=== PATIENT | male | born 1960 | race Caucasian/White ===

== ENCOUNTER 2017-08-20 10:44 | Inpatient (IN) | payer MEDICAID ==
[~2017-08-20] VITALS: Ht 165.1 cm; Wt 67.6 kg
[2017-08-20 10:46] VITALS: BP 144/91
[2017-08-20] MEDS ORDERED: NACL 0.9% 1,000 ML IV ONE ×2 (11:00→11:55)
[2017-08-20] MEDS ORDERED: MECLIZINE 25 MG TAB PO ONE (11:00)
[2017-08-20 11:27] LABS: HEMATOCRIT 51.6 % (36-52); HEMOGLOBIN 16.7 g/dL (12.0-18.0); MEAN CORPUSCULAR HEMOGLOBIN 27 pg (27-31); MEAN CORPUSCULAR HGB CONC 32 g/dL (33-37); MEAN CORPUSCULAR VOLUME 84.4 fL (80-94); PLATELET COUNT (AUTO) 153 K/uL (140-450); RED BLOOD CELL COUNT(AUTO) 6.11 MIL/uL (4.20-6.10); RED CELL DISTRIBUTION WIDTH 12.1 % (11.6-13.7); WHITE BLOOD COUNT (AUTO) 5.7 K/uL (4.8-10.8)
[2017-08-20 11:40] LABS: PROTHROMBIN TIME 10.8 secs (10.8-13.4)
[2017-08-20 12:03] LABS: LYMPHOCYTES % (MANUAL) 22 % (20-46); MONOCYTES % (MANUAL) 3 % (5-12)
[2017-08-20 12:06] LABS: APPEARANCE,URINE CLEAR (CLEAR); BILIRUBIN,URINE NEGATIVE (NEGATIVE); BLOOD, URINE TRACE-I (NEGATIVE); COLOR,URINE YELLOW (YELLOW); LEUKOCYTE ESTERASE ,URINE NEGATIVE (NEGATIVE); NITRITE, URINE NEGATIVE (NEGATIVE); PH,URINE 5.5 (5.0-9.0); UGLUCOSE NEGATIVE (NEGATIVE)
[2017-08-20 12:07] LABS: ANION GAP 17.9 (8-16); CARBON DIOXIDE 21.3 mmol/L (21-32); CREATININE 1.5 mg/dL (0.7-1.3); POTASSIUM 3.2 mmol/L (3.5-5.1)
[2017-08-20 12:15] LABS: ALBUMIN 3.9 g/dL (3.4-5.0)
[2017-08-20 12:16] LABS: RBC,URINE 0-5 (RARE) /HPF (0-5); WBC,URINE 0-5 (RARE) /HPF (0-5)
[2017-08-20 12:18] LABS: LIPASE 217 U/L (73-393)
[2017-08-20] MEDS ORDERED: POTASSIUM CHLORIDE 10 MEQ TABER PO ONE (12:20)
[2017-08-20] MEDS: NACL 0.9% 1,000 ML IV SCH ×2 (12:31→22:39)
[2017-08-20] MEDS ORDERED: ZOLPIDEM 5 MG TAB PO PRN (12:35)
[2017-08-20] MEDS ORDERED: LORazepam 0.5 MG TAB PO PRN (12:35)
[2017-08-20] MEDS ORDERED: ONDANSETRON 4 MG/2 ML VIAL IM/IVP PRN (12:35)
[2017-08-20] MEDS ORDERED: DOCUSATE SODIUM 100 MG GELCAP PO PRN (12:35)
[2017-08-20] MEDS ORDERED: HYDROcodone/APAP 7.5/325 MG 1 TAB PO PRN (12:35)
[2017-08-20] MEDS ORDERED: MORPHINE SULFATE 2 MG/ML SYR IVP PRN (12:35)
[2017-08-20] MEDS ORDERED: ACETAMINOPHEN 325 MG TAB PO PRN (12:35)
[2017-08-20] MEDS ORDERED: MECLIZINE 25 MG TAB PO PRN (12:40)
[2017-08-20] MEDS ORDERED: cefTRIAXone 1,000 MG VIAL ONE (12:52)
[2017-08-20] MEDS ORDERED: LABETALOL 100 MG/20 ML VIAL IVP SCH (13:02)
[2017-08-20] MEDS ORDERED: ASPI81CT89 PO (13:08)
[2017-08-20] MEDS ORDERED: AMOX500C25 PO (13:08)
[2017-08-20] MEDS ORDERED: AMLO5TAB PO (13:08)
[2017-08-20] MEDS ORDERED: amLODIPine 5 MG TAB PO SCH (13:16)
[2017-08-20 13:45] LABS: CHOL/HDL RATIO 3.7 (1-4.5); FREE T4 (FREE THYROXINE) 1.02 ng/dL (0.76-1.46); MAGNESIUM 2.4 mg/dL (1.8-2.4); PHOSPHORUS 1.2 mg/dL (2.5-4.9); THYROID STIMULATING HORMONE 1.8 uIU/mL (0.34-3.74)
[2017-08-20 14:08] LABS: BARBITURATE, URINE NEG. ng/ml (NEG <=200); BENZODIAZEPINE, URINE NEG. ng/mL (NEG <=200); CANNABINOID, URINE NEG. ng/mL (NEG <=50); COCAINE, URINE NEG. ng/mL (NEG <=300); OPIATE, URINE NEG. ng/mL (NEG <=2000); PHENCYCLIDINE SCREEN,URINE NEG. ng/mL (NEG <=25)
[2017-08-20 14:20] VITALS: BP 138/82
[2017-08-20 16:00] VITALS: BP 125/81
[2017-08-20] MEDS: SODIUM PHOS / POTASSIUM PHOS 1 PKT PDR PO SCH (17:05)
[2017-08-20 20:00] VITALS: BP 135/84
[2017-08-21] VITALS: BP 129/80
[2017-08-21 04:00] VITALS: BP 128/84
[2017-08-21 07:41] LABS: BASOPHILS # (AUTO) 0.2 K/uL (0.00-0.22); BASOPHILS % (AUTO) 3.6 % (0.0-2.0); EOSINOPHILS # (AUTO) 0.2 K/uL (0-0.4); EOSINOPHILS % (AUTO) 3.8 % (0.0-4.0); HEMOGLOBIN 15.5 g/dL (12.0-18.0); LYMPHOCYTES # (AUTO) 1.4 K/uL (2.0-11.5); LYMPHOCYTES % (AUTO) 25.8 % (20.5-51.1); MEAN CORPUSCULAR HEMOGLOBIN 28 pg (27-31); MEAN CORPUSCULAR HGB CONC 33 g/dL (33-37); MEAN CORPUSCULAR VOLUME 85.3 fL (80-94); MONOCYTES # (AUTO) 0.5 K/uL (0.8-1.0); MONOCYTES % (AUTO) 9.6 % (1.7-9.3); NEUTROPHILS % (AUTO) 57.2 % (42.2-75.2); PLATELET COUNT (AUTO) 145 K/uL (140-450); RED BLOOD CELL COUNT(AUTO) 5.51 MIL/uL (4.20-6.10); RED CELL DISTRIBUTION WIDTH 12.6 % (11.6-13.7); WHITE BLOOD COUNT (AUTO) 5.3 K/uL (4.8-10.8)
[2017-08-21 07:50] LABS: ANION GAP 14.5 (8-16); CARBON DIOXIDE 23.5 mmol/L (21-32); CREATININE 1.2 mg/dL (0.7-1.3)
[2017-08-21 08:00] VITALS: BP 126/77
[2017-08-21] MEDS: NACL 0.9% 1,000 ML IV SCH (08:31)
[2017-08-21] MEDS ORDERED: METOPROLOL SUCCINATE 50 MG TABER PO SCH (09:00)
[2017-08-21] MEDS ORDERED: LACTOBACILLUS RHAMNOSUS GG 1 EACH CAP PO SCH (09:00)
[2017-08-21] MEDS ORDERED: ATORVASTATIN 20 MG TAB PO SCH ×2 (09:00)
[2017-08-21] MEDS ORDERED: ASPIRIN 81 MG TAB.CHEW PO SCH (09:00)
[2017-08-21] MEDS ORDERED: amLODIPine 5 MG TAB PO SCH ×2 (09:00)
[2017-08-21] MEDS: SODIUM PHOS / POTASSIUM PHOS 1 PKT PDR PO SCH (09:08)
[2017-08-21 10:20] VITALS: BP 144/86
[2017-08-21] MEDS ORDERED: LOVA10TA2 PO (10:27)
[2017-08-21 11:58] VITALS: BP 141/95
== END 2017-08-21 13:30 | disposition home or self-care (01) | DRG 243 ==
LOC: MED 10:44 → MTU 12:36
PROVIDERS: ADMIT Family Medicine; ATTEND Family Medicine
DX: K21.9 Gastro-esophageal reflux disease without esophagitis (principal); N17.0 Acute kidney failure with tubular necrosis; G45.9 Transient cerebral ischemic attack, unspecified; M94.0 Chondrocostal junction syndrome [Tietze]; I24.9 Acute ischemic heart disease, unspecified; I10 Essential (primary) hypertension; E86.0 Dehydration; E87.6 Hypokalemia; H66.92 Otitis media, unspecified, left ear; H53.8 Other visual disturbances; Z79.899 Other long term (current) drug therapy
CPT/HCPCS: 36415; 70450; 71045; 80048; 80053; 80305; 81001; 82150; 82550; 83036; 83605; 83690; 83735; 83880; 84100; 84436; 84439; 84443; 84479; 84484; 85025; 85610; 85730; 86702; 87040; 87081; 93005; 93880; 96360; 96361; 99285; J0696; J3490; J7030; J7060; J8597; Q0092

== ENCOUNTER 2017-08-22 22:55 | Emergency (ER) | payer MEDICAID ==
[~2017-08-22] VITALS: Ht 165.1 cm; Wt 68.0 kg
[~2017-08-22 22:55] MED LIST: AMLO5TAB PO; AMOX500C25 PO; ASPI81CT89 PO; LOVA10TA2 PO
[2017-08-22 22:59] VITALS: BP 160/103
[2017-08-23 01:01] LABS: BASOPHILS # (AUTO) 0.1 K/uL (0.00-0.22); EOSINOPHILS # (AUTO) 0.1 K/uL (0-0.4); HEMATOCRIT 47.7 % (36-52); LYMPHOCYTES # (AUTO) 1.6 K/uL (2.0-11.5); MEAN CORPUSCULAR HEMOGLOBIN 28 pg (27-31); MEAN CORPUSCULAR HGB CONC 34 g/dL (33-37); MONOCYTES # (AUTO) 0.3 K/uL (0.8-1.0); NEUTROPHILS # (AUTO) 2.7 K/uL (1.8-7.7); PLATELET COUNT (AUTO) 162 K/uL (140-450); RED BLOOD CELL COUNT(AUTO) 5.67 MIL/uL (4.20-6.10); RED CELL DISTRIBUTION WIDTH 12.9 % (11.6-13.7); WHITE BLOOD COUNT (AUTO) 4.9 K/uL (4.8-10.8)
[2017-08-23 01:09] LABS: ANION GAP 18.4 (8-16); CREATININE 1.4 mg/dL (0.7-1.3); POTASSIUM 3.4 mmol/L (3.5-5.1)
[2017-08-23 01:12] LABS: LYMPHOCYTES % (AUTO) 32.6 % (20.5-51.1); MONOCYTES % (AUTO) 7.1 % (1.7-9.3); NEUTROPHILS % (AUTO) 55.2 % (42.2-75.2)
[2017-08-23 01:13] LABS: EOSINOPHILS % (AUTO) 3.1 % (0.0-4.0)
[2017-08-23 01:14] LABS: ALBUMIN 3.9 g/dL (3.4-5.0); TOTAL BILIRUBIN 0.5 mg/dL (0.0-1.0)
[2017-08-23 02:07] VITALS: BP 140/96
== END 2017-08-23 02:08 | disposition home or self-care (01) ==
LOC: MED 22:55
DX: E86.0 Dehydration (principal); R94.31 Abnormal electrocardiogram [ECG] [EKG]; E78.5 Hyperlipidemia, unspecified; I10 Essential (primary) hypertension; Z79.899 Other long term (current) drug therapy
CPT/HCPCS: 36415; 80053; 84484; 85025; 93005; 99285

== ENCOUNTER 2020-01-21 14:52 | Emergency (ER) | payer MEDICAID ==
[~2020-01-21] VITALS: Ht 165.1 cm; Wt 61.2 kg
[~2020-01-21 14:52] MED LIST changes: -AMLO5TAB PO; -AMOX500C25 PO; -ASPI81CT89 PO; +ATA25 PO; -LOVA10TA2 PO; +OMEP20TC12 PO; +ORE25 PO
[2020-01-21 14:57] VITALS: BP 150/113
--- NOTE | 2020-01-21 15:00 | NUR ---
PT AMBULATED TO ROOM 2 WITH STEADY GAIT.
--- NOTE | 2020-01-21 15:12 | NUR ---
C/O NAUSEA, HEADACHE , LEFT LEG SWELLING , LEFT EAR PAIN X 5DAYS.PT AOX 4 , AFIBRILE , AMBULATORY WITH STEADY GAIT , PINK PALPEBRAL CONJUNCTIVA , ANICTERIC SCLERA , SCE , FLAT SOFT ABDOMEN , NO ROM OF UE AND LE. PMHXS HTN MEDS UNRECALLED MEDS.
--- NOTE | 2020-01-21 15:16 | NUR ---
DANIELLE TY AT BEDSIDE EVALUATING PT.
[2020-01-21] MEDS ORDERED: KETOROLAC 30 MG/ML VIAL IM ONE (15:20)
[2020-01-21 16:26] VITALS: BP 147/87
--- NOTE | 2020-01-21 16:27 | NUR ---
Patient discharged with v/s stable. Written and verbal after care instructions given and explained regarding tension headache. Patient alert, oriented and verbalized understanding of instructions. Ambulatory with steady gait. All questions addressed prior to discharge. ID band removed. Patient advised to follow up with PMD. Rx of tramadol given. Patient educated on indication of medication including possible reaction and side effects. Opportunity to ask questions provided and answered.
== END 2020-01-21 16:27 | disposition home or self-care (01) ==
LOC: MED 14:52
DX: R51 Headache (principal); R11.0 Nausea; M79.89 Other specified soft tissue disorders; I10 Essential (primary) hypertension; Z79.899 Other long term (current) drug therapy
CPT/HCPCS: 70450; 96372; 99284; J1885